=== PATIENT | female | born 1995 | race American Indian/Alaskan Native ===

== ENCOUNTER 2018-12-15 08:11 | Emergency (ER) | payer OTHER ==
[2018-12-15 08:17] VITALS: BP 121/80
--- NOTE | 2018-12-15 09:17 | Emergency Department Report ---
ED Headache HPI - General Chief Complaint: Headache Stated Complaint: HEAD PAIN/MIGRANE Time Seen by Provider: 12/15/18 09:08 - History of Present Illness Initial Comments: Patient is 23 years old female with no significant past medical history. Patient presented to the ER complaining of headache for the last 3 days. Patient stated that her symptoms started with a runny nose, cough, congestion and bilateral ear pain. Patient denied any fever or chills. No neck pain or rigidity. Patient also denied any nausea or vomiting. Patient found to be tachycardic at a rate of 123 with of the vital signs are stable. Allergies/Adverse Reactions: Allergies No Known Allergies Allergy (Verified 12/15/18 08:15) Home Medications: Ambulatory Orders Docusate Sodium [Colace CAP] 100 mg PO BID PRN #60 capsule 01/21/15 Ibuprofen [Motrin 800 MG tab] 800 mg PO Q8HR PRN #30 tablet 01/21/15 oxyCODONE /ACETAMINOPHEN [Percocet 5/325 mg] 1 - 2 tab PO Q6HR PRN #30 tablet 01/21/15 Pnv,Calcium 72/Iron/Folic Acid [Pnv Plus Multivit Tab] 1 tab PO DAILY 01/22/15 Ciprofloxacin HCl [Ciprofloxacin TAB] 500 mg PO Q12HR #14 tab 12/26/15 Ibuprofen [Motrin 800 MG tab] 800 mg PO Q8HR PRN #30 tablet 12/26/15 ED Review of Systems ROS: Stated complaint: HEAD PAIN/MIGRANE Other details as noted in HPI Comment: All other systems reviewed and negative Constitutional: denies: chills, fever Respiratory: denies: cough, orthopnea, shortness of breath, SOB with exertion, SOB at rest Gastrointestinal: denies: abdominal pain, nausea, vomiting Musculoskeletal: denies: back pain ED Past Medical Hx - Past Medical History Hx Hypertension: No Hx Congestive Heart Failure: No Hx Diabetes: No Hx Deep Vein Thrombosis: No Hx Renal Disease: No Hx Sickle Cell Disease: No Hx Seizures: No Hx Asthma: No Hx COPD: No Hx HIV: No - Surgical History Additional Surgical History: - Social History Smoking Status: Never Smoker Substance Use Type: None - Medications Home Medications: Home Medications Medication Instructions Recorded Confirmed Last Taken Type Docusate Sodium [Colace CAP] 100 mg PO BID PRN #60 capsule 01/21/15 Unknown Rx Ibuprofen [Motrin 800 MG tab] 800 mg PO Q8HR PRN #30 tablet 01/21/15 Unknown Rx oxyCODONE /ACETAMINOPHEN [Percocet 1 - 2 tab PO Q6HR PRN #30 tablet 01/21/15 Unknown Rx 5/325 mg] Pnv,Calcium 72/Iron/Folic Acid 1 tab PO DAILY 01/22/15 01/22/15 01/05/15 History [Pnv Plus Multivit Tab] Ciprofloxacin HCl [Ciprofloxacin 500 mg PO Q12HR #14 tab 12/26/15 Unknown Rx TAB] Ibuprofen [Motrin 800 MG tab] 800 mg PO Q8HR PRN #30 tablet 12/26/15 Unknown Rx ED Physical Exam - General Limitations: No Limitations General appearance: alert, in no apparent distress - Head Head exam: Present: atraumatic, normocephalic, normal inspection - Eye Eye exam: Present: normal appearance - ENT ENT exam: Present: normal exam, normal orophraynx, mucous membranes moist - Neck Neck exam: Present: normal inspection, full ROM. Absent: tenderness, meningismus, lymphadenopathy, thyromegaly - Respiratory Respiratory exam: Present: normal lung sounds bilaterally - Cardiovascular Cardiovascular Exam: Present: bradycardia - GI/Abdominal GI/Abdominal exam: Present: soft, normal bowel sounds. Absent: distended, tenderness, guarding, rebound, rigid - Extremities Exam Extremities exam: Present: normal inspection, full ROM, normal capillary refill. Absent: pedal edema, calf tenderness - Back Exam Back exam: Present: normal inspection, full ROM. Absent: tenderness, CVA te nderness (R), CVA tenderness (L), muscle spasm, paraspinal tenderness, vertebral tenderness - Neurological Exam Neurological exam: Present: alert, oriented X3, CN II-XII intact, normal gait - Skin Skin exam: Present: warm, intact, normal color ED Course Vital Signs 12/15/18 08:16 Temperature 98.5 F Pulse Rate 123 H Respiratory 18 Rate Blood Pressure 121/80 [Left] O2 Sat by Pulse 98 Oximetry ED Medical Decision Making - Lab Data Result diagrams: 12/15/18 09:19 12/15/18 09:19 - Radiology Data Radiology results: report reviewed CT brain is negative for acute finding except for possible sinusitis. - Medical Decision Making Patient is 23 years old female with no significant past medical history. Patient presented to the ER complaining of headache for the last 3 days. Patient stated that her symptoms started with a runny nose, cough, congestion and bilateral ear pain. Patient denied any fever or chills. No neck pain or rigidity. Patient also denied any nausea or vomiting. Patient found to be tachycardic at a rate of 123 with of the vital signs are stable. Labs reviewed and is unremarkable except for evidence of hyperthyroidism which is a new diagnosis for this patient. CT brain is negative for acute finding except for sinusitis. I will start patient on PTU and propanolol and given a prescription for Augmentin for sinusitis and Flonase. Patient given [facility] for follow-up and advised to return to the ER if symptoms are not improved. Critical care attestation.: If time is entered above; I have spent that time in minutes in the direct care of this critically ill patient, excluding procedure time. ED Disposition Clinical Impression: Headache, Hyperthyroidism, Sinusitis Disposition: DC-01 TO HOME OR SELFCARE Is pt being admited?: No Condition: Stable Instructions: Hyperthyroidism (ED), Sinusitis (ED), Acute Headache (ED) Referrals: [facility] [Provider Group] - 3-5 Days
[2018-12-15 09:31] LABS: Basophils % (Auto) 0.6 % (0.0-1.8); Eosinophils # (Auto) 0.1 K/mm3 (0.0-0.4); Eosinophils % (Auto) 1.5 % (0.0-4.3); Hematocrit 37.4 % (30.3-42.9); Hemoglobin 12.6 gm/dl (10.1-14.3); Lymphocytes # (Auto) 1.8 K/mm3 (1.2-5.4); Lymphocytes % (Auto) 27.3 % (13.4-35.0); Mean Corpuscular HGB Conc 34 % (30-34); Mean Corpuscular Volume 78 fl (79-97); Monocytes # (Auto) 0.6 K/mm3 (0.0-0.8); Monocytes % (Auto) 8.7 % (0.0-7.3); Platelet Count 244 K/mm3 (140-440); Red Blood Count 4.82 M/mm3 (3.65-5.03)
[2018-12-15 09:48] LABS: Alanine Aminotransferase 37 units/L (7-56); Albumin 3.3 g/dL (3.9-5); BUN/Creatinine Ratio 35; Blood Urea Nitrogen 14 mg/dL (7-17); Calcium 9.7 mg/dL (8.4-10.2); Hemolysis Index 79
[2018-12-15 10:00] LABS: Bilirubin,Direct < 0.2 mg/dL (0-0.2)
[2018-12-15 10:36] LABS: Free T4 (Free Thyroxine) 7.77 ng/dL (0.76-1.46)
--- NOTE | 2018-12-15 11:30 | Cat Scan Report ---
PROCEDURE: CT HEAD/BRAIN WO CON TECHNIQUE: CT of the head was performed without intravenous contrast. HISTORY: headache COMPARISONS: None FINDINGS: The ventricles are normal in position and shape. The ventricles are nondilated. No intracranial hemorrhage, mass, mass effect or evidence of acute ischemic infarct. The basilar cisterns are patent. Mild left frontal sinus mucosal thickening is likely congestive or inflammatory. The mastoid air cell s are clear. The orbits are intact. The calvarium is intact. No extracranial soft tissue swelling. IMPRESSION: 1. No acute intracranial abnormality. 2. Left frontal sinus mucosal thickening is likely congestive or inflammatory. This document is electronically signed by Yuko Reyes., December 15 2018 11:28:14 AM ET
[2018-12-15] MEDS ORDERED: TORADOL IM ONE (11:52)
== END 2018-12-15 12:39 | disposition home or self-care (01) ==
LOC: ED 08:11
DX: J01.90 Acute sinusitis, unspecified (principal); E05.90 Thyrotoxicosis, unspecified without thyrotoxic crisis or storm; H92.01 Otalgia, right ear; H92.02 Otalgia, left ear; Z79.899 Other long term (current) drug therapy; Z79.1 Long term (current) use of non-steroidal anti-inflammatories (NSAID)
CPT/HCPCS: 36415; 70450; 80048; 80076; 84439; 84443; 84703; 85025; 93005; 93010; 96372; 99284; J1885

== ENCOUNTER 2019-07-13 12:33 | Emergency (ER) | payer SELFPAY ==
--- NOTE | 2019-07-13 13:00 | Event Note ---
ED Screening Note ED Screening Note: states she has a headache that began two days ago states she took motrin, which helped +diarrhea, 3-4 episodes no n/v no fever PMHx hyperthyroidism had a normal CT head recently states she has not follow up with her PCP This initial assessment/diagnostic orders/clinical plan/treatment(s) is/are subject to change based on patients health status, clinical progression and re- assessment by fellow clinical providers in the ED. Further treatment and workup at subsequent clinical providers discretion. Patient/guardian urged not to elope from the ED as their condition may be serious if not clinically assessed and managed. Initial orders include: labs
[2019-07-13 13:02] VITALS: BP 130/83
[2019-07-13 15:16] LABS: Basophils % (Auto) 0.2 % (0.0-1.8); Eosinophils # (Auto) 0.1 K/mm3 (0.0-0.4); Eosinophils % (Auto) 1.5 % (0.0-4.3); Hematocrit 37.2 % (30.3-42.9); Hemoglobin 12.5 gm/dl (10.1-14.3); Lymphocytes # (Auto) 1.6 K/mm3 (1.2-5.4); Lymphocytes % (Auto) 19.6 % (13.4-35.0); Mean Corpuscular HGB Conc 34 % (30-34); Mean Corpuscular Volume 75 fl (79-97); Monocytes # (Auto) 0.6 K/mm3 (0.0-0.8); Monocytes % (Auto) 7.2 % (0.0-7.3); Platelet Count 235 K/mm3 (140-440); Red Blood Count 4.94 M/mm3 (3.65-5.03)
[2019-07-13] MEDS ORDERED: diphenhydrAMINE 50 MG/ML VIAL IV ONE (15:29)
[2019-07-13] MEDS ORDERED: METOCLOPRAMIDE 10 MG/2 ML INJ IV ONE (15:29)
[2019-07-13] MEDS ORDERED: SODIUM CHLORIDE 0.9% 1000 ML 1,000 ML IV ONE (15:29)
[2019-07-13 15:44] LABS: Alanine Aminotransferase 28 units/L (7-56); Albumin 3.6 g/dL (3.9-5); BUN/Creatinine Ratio 27; Blood Urea Nitrogen 8 mg/dL (7-17); Calcium 9.7 mg/dL (8.4-10.2); Hemolysis Index 18
--- NOTE | 2019-07-13 17:44 | Emergency Department Report ---
ED Headache HPI - General Chief Complaint: Headache Stated Complaint: ABD PAIN/HEADACHE Time Seen by Provider: 07/13/19 12:59 - History of Present Illness Initial Comments: This is a 24-year-old female nontoxic, well nourished in appearance, no acute signs of distress presents to the ED with c/o of acute on chronic headache. Fox schwartz describes headache as diffuse with level of 3 out of 10. Patient stated has n/v from the pain. Deneis any abdominal pain. Patient denies thunderclap headache. Patient denies any radiation of pain. Patient denies any head trauma. Patient denies any visual changes. Patient denies worse headache. Patient stated that darkness makes headache better and bright lights make the headache worse. She hasn't had a normal CT scan that was done on 12/25/2018. Patient describes headache as similar to migraine headaches. Patient denies any numbness, tingling, fever, chills, chest pain, shortness of breath, stiff neck. Patient denies facial drooping or one sided weakness. Patient denies any radiation of pain. Patient denies any allergies. Past medical history includes migraine headaches. Patient also stated has hyperthyroidism which she takes medication. Timing/Duration: episodic Quality: mild, achy Head Injury Location: frontal Recent Head Trauma: occasional headaches Associated Symptoms: nausea/vomiting. denies: confusion, fatigue, facial pain, fever/chills, flushing, loss of consciousness, nasal congestion, nasal drainage, numbness in legs/feet, rash, seizures, sinus infection, stiff neck, vision changes, weakness Allergies/Adverse Reactions: Allergies No Known Allergies Allergy (Verified 12/15/18 08:15) Home Medications: Ambulatory Orders Docusate Sodium [Colace CAP] 100 mg PO BID PRN #60 capsule 01/21/15 Ibuprofen [Motrin 800 MG tab] 800 mg PO Q8HR PRN #30 tablet 01/21/15 oxyCODONE /ACETAMINOPHEN [Percocet 5/325 mg] 1 - 2 tab PO Q6HR PRN #30 tablet 01/21/15 Pnv,Calcium 72/Iron/Folic Acid [Pnv Plus Multivit Tab] 1 tab PO DAILY 01/22/15 Ciprofloxacin HCl [Ciprofloxacin TAB] 500 mg PO Q12HR #14 tab 12/26/15 Ibuprofen [Motrin 800 MG tab] 800 mg PO Q8HR PRN #30 tablet 12/26/15 Amoxicillin/Potassium Clav [Augmentin 875-125 Tablet] 1 each PO BID #20 tablet 12/15/18 Fluticasone [Flonase] 1 spray NS QDAY #1 bottle 12/15/18 Propranolol [Inderal] 10 mg PO ONCE #30 tablet 12/15/18 propylthiouraciL [Propylthiouracil] 50 mg PO TID #90 tab 12/15/18 Butalb/Acetaminophen/Caffeine [Fioricet 50-300-40 mg CAP] 1 cap PO Q6HR PRN #12 cap 07/13/19 ED Review of Systems ROS: Stated complaint: ABD PAIN/HEADACHE Other details as noted in HPI Constitutional: denies: chills, fever Eyes: denies: eye pain, eye discharge, vision change ENT: denies: ear pain, throat pain Respiratory: denies: cough, shortness of breath, wheezing Cardiovascular: denies: chest pain, palpitations Endocrine: no symptoms reported Gastrointestinal: nausea, vomiting. denies: abdominal pain, diarrhea Genitourinary: denies: urgency, dysuria, discharge Musculoskeletal: denies: back pain, joint swelling, arthralgia Skin: denies: rash, lesions Neurological: headache. denies: weakness, paresthesias Psychiatric: denies: anxiety, depression Hematological/Lymphatic: denies: easy bleeding, easy bruising ED Past Medical Hx - Past Medical History Previous Medical History?: No Hx Hypertension: No Hx Congestive Heart Failure: No Hx Diabetes: No Hx Deep Vein Thrombosis: No Hx Renal Disease: No Hx Sickle Cell Disease: No Hx Seizures: No Hx Asthma: No Hx COPD: No Hx HIV: No - Surgical History Past Surgical History?: Yes Additional Surgical History: - Social History Smoking Status: Never Smoker Substance Use Type: None - Medications Home Medications: Home Medications Medication Instructions Recorded Confirmed Last Taken Type Docusate Sodium [Colace CAP] 100 mg PO BID PRN #60 capsule 01/21/15 Unknown Rx Ibuprofen [Motrin 800 MG tab] 800 mg PO Q8HR PRN #30 tablet 01/21/15 Unknown Rx oxyCODONE /ACETAMINOPHEN [Percocet 1 - 2 tab PO Q6HR PRN #30 tablet 01/21/15 Unknown Rx 5/325 mg] Pnv,Calcium 72/Iron/Folic Acid 1 tab PO DAILY 01/22/15 01/22/15 01/05/15 History [Pnv Plus Multivit Tab] Ciprofloxacin HCl [Ciprofloxacin 500 mg PO Q12HR #14 tab 12/26/15 Unknown Rx TAB] Ibuprofen [Motrin 800 MG tab] 800 mg PO Q8HR PRN #30 tablet 12/26/15 Unknown Rx Amoxicillin/Potassium Clav 1 each PO BID #20 tablet 12/15/18 Unknown Rx [Augmentin 875-125 Tablet] Fluticasone [Flonase] 1 spray NS QDAY #1 bottle 12/15/18 Unknown Rx Propranolol [Inderal] 10 mg PO ONCE #30 tablet 12/15/18 Unknown Rx propylthiouraciL [Propylthiouracil] 50 mg PO TID #90 tab 12/15/18 Unknown Rx Butalb/Acetaminophen/Caffeine 1 cap PO Q6HR PRN #12 cap 07/13/19 Unknown Rx [Fioricet 50-300-40 mg CAP] ED Physical Exam - General Limitations: No Limitations General appearance: alert, in no apparent distress - Head Head exam: Present: atraumatic, normocephalic - Eye Eye exam: Present: normal appearance, PERRL, EOMI - Neck Neck exam: Present: normal inspection, full ROM. Absent: tenderness, meningismus, lymphadenopathy - Respiratory Respiratory exam: Present: normal lung sounds bilaterally. Absent: respiratory distress, wheezes, rales, rhonchi, stridor, chest wall tenderness, accessory muscle use, decreased breath sounds, prolonged expiratory - Cardiovascular Cardiovascular Exam: Present: regular rate, normal rhythm, normal heart sounds. Absent: irregular rhythm, systolic murmur, diastolic murmur, rubs, gallop - GI/Abdominal GI/Abdominal exam: Present: soft, normal bowel sounds. Absent: distended, tenderness, guarding, rebound, rigid, diminished bowel sounds - Extremities Exam Extremities exam: Present: normal inspection, full ROM - Back Exam Back exam: Present: normal inspection, full ROM. Absent: tenderness, CVA tenderness (R), CVA tenderness (L), muscle spasm, paraspinal tenderness, vertebral tenderness, rash noted - Neurological Exam Neurological exam: Present: alert, oriented X3, normal gait - Psychiatric Psychiatric exam: Present: normal affect, normal mood - Skin Skin exam: Present: warm, dry, intact, normal color. Absent: rash ED Course Vital Signs 07/13/19 12:59 Temperature 98.5 F Pulse Rate 110 H Respiratory 18 Rate Blood Pressure 130/83 O2 Sat by Pulse 98 Oximetry - Reevaluation(s) Reevaluation #1: 07/13/19 17:44 Patient is speaking in full sentences with no signs of distress noted. ED Medical Decision Making - Lab Data Result diagrams: 07/13/19 14:53 07/13/19 14:53 - Medical Decision Making This is a 24-year-old female that presents with headache. Patient is stable and was examined by me. Patient is neurologically stable. There is no stiff neck or neck pain. Vital signs are stable. Patient is afebrile. Patient received Benadryl, Reglan, and 1 L of normal saline which the patient stated that he adache has subsided and resolved. Patient was instructed not to operate any machinery after discharged due to drowsiness of Benadryl. Patient stated that a family member will drive patient home. Patient is discharged with Fioricet. Patient was referred to Follow-up with a primary care/neurologist doctor in 3-5 days or if symptoms worsen and continue return to emergency room as soon as possible. At time of discharge, the patient does not seem toxic or ill in appearance. No acute signs of distress noted. Patient agrees to discharge treatment plan of care. No further questions noted by the patient. Critical care attestation.: If time is entered above; I have spent that time in minutes in the direct care of this critically ill patient, excluding procedure time. ED Disposition Clinical Impression: Hyperthyroidism Headache Qualifiers: Headache type: unspecified Headache chronicity pattern: acute headache Intractability: not intractable Qualified Code(s): R51 - Headache Disposition: DC-01 TO HOME OR SELFCARE Is pt being admited?: No Does the pt Need Aspirin: No Condition: Stable Instructions: Hyperthyroidism (ED), Acute Headache (ED), Butalbital/Aspirin/Caffeine (By mouth) Additional Instructions: Follow-up with a primary care and neurologist doctor in 3-5 days or if symptoms worsen and continue return to emergency room as soon as possible. Prescriptions: Butalb/Acetaminophen/Caffeine [Fioricet 50-300-40 mg CAP] 1 cap PO Q6HR PRN #12 cap PRN Reason: Headache Referrals: PRIMARY CARE, [Primary Care Provider] - 3-5 Days CARBUCCIA,NANDA, MD [Staff Physician] - 3-5 Days CILFFORD MILLS MD [Staff Physician] - 3-5 Days [facility] [Outside] - 3-5 Days Forms: Work/School Release Form(ED)
== END 2019-07-13 18:09 | disposition home or self-care (01) ==
LOC: ED 12:33
DX: R51 Headache (principal); E05.90 Thyrotoxicosis, unspecified without thyrotoxic crisis or storm; Z79.899 Other long term (current) drug therapy; R11.2 Nausea with vomiting, unspecified
CPT/HCPCS: 36415; 80053; 84436; 84443; 84703; 85025; 96361; 96374; 96375; 99283; J1200; J2765; J7030

== ENCOUNTER 2021-03-27 21:27 | Emergency (ER) | payer MEDICAID ==
[2021-03-27 23:57] VITALS: BP 141/83
[2021-03-28] MEDS ORDERED: ACETAMINOPHEN 500 MG TAB PO ONE (00:13)
--- NOTE | 2021-03-28 00:26 | Emergency Department Report ---
ED Abdominal Pain HPI - General Chief Complaint: Abdominal Pain Stated Complaint: ABD CRAMPS Source: patient Mode of arrival: Ambulatory Limitations: No Limitations - History of Present Illness Initial Comments: Patient is a A0 5-year-old -N[place]ian female with no past medical history and who is approximately 6 weeks gestation presents to the ED with complaint of acute onset persistent pelvic pain for the last 2 days. Patient states that the pain has been persistent and worse with movement or any physical activity. Patient denies vaginal bleeding, dysuria, urinary frequency and urgency, vaginal discharge, low back pain, shortness of breath, chest pain, nausea and vomiting and diarrhea, traumatic injury or fall and heavy lifting. MD Complaint: abdominal pain (suprapubic pain), other (6 weeks gestation) -: Sudden, days(s) (2) Location: suprapubic Radiation: none Migration to: no migration Severity: moderate Severity scale (0 -10): 5 Quality: cramping Consistency: constant Improves With: nothing Worsens With: nothing Context: other (Approximately 6 weeks gestation) Associated Symptoms: denies other symptoms, nausea. denies: vomiting, diarrhea, fever, chills, constipation, dysuria, hematemesis, hematochezia, melena, hematuria, anorexia, syncope - Related Data Home Medications Medication Instructions Recorded Confirmed Last Taken Pnv,Calcium 72/Iron/Folic Acid 1 tab PO DAILY 01/22/15 01/22/15 01/05/15 [Pnv Plus Multivit Tab] Previous Rx's Medication Instructions Recorded Last Taken Type Docusate Sodium [Colace CAP] 100 mg PO BID PRN #60 capsule 01/21/15 Unknown Rx Ibuprofen [Motrin 800 MG tab] 800 mg PO Q8HR PRN #30 tablet 01/21/15 Unknown Rx oxyCODONE /ACETAMINOPHEN [Percocet 1 - 2 tab PO Q6HR PRN #30 tablet 01/21/15 Unknown Rx 5/325 mg] Ciprofloxacin HCl [Ciprofloxacin 500 mg PO Q12HR #14 tab 12/26/15 Unknown Rx TAB] Ibuprofen [Motrin 800 MG tab] 800 mg PO Q8HR PRN #30 tablet 12/26/15 Unknown Rx Amoxicillin/Potassium Clav 1 each PO BID #20 tablet 12/15/18 Unknown Rx [Augmentin 875-125 Tablet] Fluticasone [Flonase] 1 spray NS QDAY #1 bottle 12/15/18 Unknown Rx propranoloL [Inderal] 10 mg PO ONCE #30 tablet 12/15/18 Unknown Rx propylthiouraciL [Propylthiouracil] 50 mg PO TID #90 tab 12/15/18 Unknown Rx Butalb/Acetaminophen/Caffeine 1 cap PO Q6HR PRN #12 cap 07/13/19 Unknown Rx [Fioricet 50-300-40 mg CAP] Acetaminophen [Tylenol] 500 mg PO Q6HR PRN #30 tablet 03/28/21 Unknown Rx Allergies Allergy/AdvReac Type Severity Reaction Status Date / Time No Known Allergies Allergy Verified 12/15/18 08:15 ED Review of Systems ROS: Stated complaint: ABD CRAMPS Other details as noted in HPI Constitutional: denies: chills, fever Eyes: denies: eye pain, eye discharge, vision change ENT: denies: ear pain, throat pain Respiratory: denies: cough, shortness of breath, wheezing Cardiovascular: denies: chest pain, palpitations Endocrine: no symptoms reported Gastrointestinal: abdominal pain (Suprapubic pain), nausea. denies: vomiting, diarrhea Genitourinary: denies: urgency, dysuria, discharge Musculoskeletal: denies: back pain, joint swelling, arthralgia Skin: denies: rash, lesions Neurological: denies: headache, weakness, paresthesias Psychiatric: denies: anxiety, depression Hematological/Lymphatic: denies: easy bleeding, easy bruising ED Past Medical Hx - Past Medical History Hx Hypertension: No Hx Congestive Heart Failure: No Hx Diabetes: No Hx Deep Vein Thrombosis: No Hx Renal Disease: No Hx Sickle Cell Disease: No Hx Seizures: No Hx Asthma: No Hx COPD: No Hx HIV: No - Surgical History Additional Surgical History: - Social History Smoking Status: Never Smoker Substance Use Type: None - Medications Home Medications: Home Medications Medication Instructions Recorded Confirmed Last Taken Type Docusate Sodium [Colace CAP] 100 mg PO BID PRN #60 capsule 01/21/15 Unknown Rx Ibuprofen [Motrin 800 MG tab] 800 mg PO Q8HR PRN #30 tablet 01/21/15 Unknown Rx oxyCODONE /ACETAMINOPHEN [Percocet 1 - 2 tab PO Q6HR PRN #30 tablet 01/21/15 Unknown Rx 5/325 mg] Pnv,Calcium 72/Iron/Folic Acid 1 tab PO DAILY 01/22/15 01/22/15 01/05/15 History [Pnv Plus Multivit Tab] Ciprofloxacin HCl [Ciprofloxacin 500 mg PO Q12HR #14 tab 12/26/15 Unknown Rx TAB] Ibuprofen [Motrin 800 MG tab] 800 mg PO Q8HR PRN #30 tablet 12/26/15 Unknown Rx Amoxicillin/Potassium Clav 1 each PO BID #20 tablet 12/15/18 Unknown Rx [Augmentin 875-125 Tablet] Fluticasone [Flonase] 1 spray NS QDAY #1 bottle 12/15/18 Unknown Rx propranoloL [Inderal] 10 mg PO ONCE #30 tablet 12/15/18 Unknown Rx propylthiouraciL [Propylthiouracil] 50 mg PO TID #90 tab 12/15/18 Unknown Rx Butalb/Acetaminophen/Caffeine 1 cap PO Q6HR PRN #12 cap 07/13/19 Unknown Rx [Fioricet 50-300-40 mg CAP] Acetaminophen [Tylenol] 500 mg PO Q6HR PRN #30 tablet 03/28/21 Unknown Rx ED Physical Exam - General Limitations: No Limitations General appearance: alert, in no apparent distress - Head Head exam: Present: atraumatic, normocephalic, normal inspection - Eye Eye exam: Present: normal appearance, PERRL, EOMI Pupils: Present: normal accommodation - ENT ENT exam: Present: normal exam, normal orophraynx, mucous membranes moist, TM's normal bilaterally, normal external ear exam - Neck Neck exam: Present: normal inspection, full ROM - Respiratory Respiratory exam: Present: normal lung sounds bilaterally. Absent: respiratory distress, wheezes, rhonchi, chest wall tenderness, accessory muscle use, decreased breath sounds, prolonged expiratory - Cardiovascular Cardiovascular Exam: Present: regular rate, normal rhythm, normal heart sounds. Absent: systolic murmur, diastolic murmur, rubs, gallop - GI/Abdominal GI/Abdominal exam: Present: soft, tenderness (Palpable mild suprapubic tenderness), normal bowel sounds. Absent: guarding, rebound, hyperactive bowel sounds, hypoactive bowel sounds, mass - Bi-manual exam: Present: other (Pelvic exam deferred at this time) - Extremities Exam Extremities exam: Present: normal inspection, full ROM, normal capillary refill - Back Exam Back exam: Present: normal inspection, full ROM. Absent: tenderness, CVA tenderness (R), CVA tenderness (L), muscle spasm, paraspinal tenderness, vertebral tenderness - Neurological Exam Neurological exam: Present: alert, oriented X3, CN II-XII intact, normal gait, reflexes normal - Psychiatric Psychiatric exam: Present: normal affect, normal mood - Skin Skin exam: Present: warm, dry, intact, normal color. Absent: rash ED Course Vital Signs 03/27/21 03/27/21 23:50 23:51 Temperature 98.9 F 98.9 F Pulse Rate 110 H Respiratory 22 18 Rate Blood Pressure 141/83 141/83 O2 Sat by Pulse 100 Oximetry ED Medical Decision Making - Lab Data Result diagrams: 03/28/21 01:06 03/28/21 01:06 - Radiology Data Radiology results: report reviewed, [place] [address] Ultrasound Report Signed Patient: MANJIT SHI MR#: [id number] : 1995 Acct:[id number] Age/Sex: 25 / F ADM Date: 03/27/21 Loc: ED Attending Dr: Ordering Physician: SHAKIR HOLLAND Date of Service: 03/28/21 Procedure(s): US OB <= 14 weeks fetus Accession Number(s): [id number] cc: SHAKIR HOLLAND EARLY OBSTETRICAL ULTRASOUND INDICATION: Pelvic pain, COMPARISON: None pertinent available TECHNIQUE: Transabdominal FINDINGS: Intrauterine is noted with pole and yolk sac seen. Cardiac activity was detected with heart rate of 116 bpm. Estimated gestational age by crown- rump length is 6 weeks 0 days. There appears to an elongated 3.9 cm implantational bleed Both ovaries show simple cysts measuring up to 3.7 cm on the left. No free fluid is seen. IMPRESSION: Early intrauterine with adjacent implantational bleed. Recommend follow-up. Signer Name: Bobby Murray MD Signed: 03/28/2021 3:49 AM Workstation Name: [id number] Transcribed By: WOJCIECH Dictated By: Bobby Murray MD Electronically Authenticated By: Bobby Murray MD Signed Date/Time: 03/28/21348 DD/ 5 TD/TT: - Medical Decision Making This is a A0 5-year-old -[place] female with no past medical history and who is approximately 6 weeks gestation presents to the ED with complaint of acute onset persistent pelvic pain for the last 2 days. Patient states that the pain has been persistent and worse with movement or any physical activity. In the ED, patient is alert and oriented x3 and is not in any distress. Patient was treated for pain in the ED with Tylenol. Lab test results were reviewed and are all nonactionable, and the hCG quant was 15,195. Urinalysis is unremarkable. Transvaginal ultrasound showed intrauterine is noted with pole and yolk sac seen. Cardiac activity was detected with heart rate of 116 bpm. Estimated gestational age by crown-rump length is 6 weeks 0 days. There appears to an elongated 3.9 cm implantational bleed. On reevaluation, patient's pain is well controlled medications. Patient will discharge home and advised to take Tylenol as needed for pain and to follow-up with [facility] physician in 5 to 7 days for reevaluation. Patient was also advised to maintain a complete pelvic rest with no physical or strenuous activities, heavy lifting or sexual activities. Patient was advised to return to the ED immediately if symptoms get worse. - Differential Diagnosis UTI; ectopic ; ovarian cyst; round ligament pain Critical care attestation.: If time is entered above; I have spent that time in minutes in the direct care of this critically ill patient, excluding procedure time. ED Disposition Clinical Impression: Abdominal pain during in first trimester, at early stage Disposition: 01 HOME / SELF CARE / HOMELESS Is pt being admited?: No Does the pt Need Aspirin: No Condition: Stable Instructions: Abdominal Pain (ED), Abdominal Pain During , [id number], Tests and Screening During Additional Instructions: All lab test results were reviewed and are all nonactionable. The transvaginal ultrasound showed an early intrauterine of approximately 6 weeks and 0 days with a heart rate of 116 bpm and an implantation on bleed. Therefore maintain a complete pelvic rest with no physical or strenuous activities such as heavy lifting or sexual activity. Take Tylenol as needed for pain with food, and follow-up with your [facility] physician in 5 to 7 days for reevaluation. Return to the ED immediately if symptoms get worse. Prescriptions: Acetaminophen [Tylenol] 500 mg PO Q6HR PRN #30 tablet PRN Reason: Pain , Severe (7-10) Referrals: BERRY ELDRIDGE MD [Staff Physician] - 3-5 Days Time of Disposition: 04:48 Print Language: SLOVAK
[2021-03-28 00:58] LABS: Bilirubin,Urine NEG (Negative); Blood,Urine NEG (Negative); Color,Urine Yellow (Yellow); Mucus,Urine FEW /HPF; Protein,Urine <15 mg/dL mg/dL (Negative); WBC,Urine < 1.0 /HPF (0.0-6.0)
[2021-03-28 01:27] LABS: Basophils % (Auto) 0.2 % (0.0-1.8); Eosinophils # (Auto) 0.2 K/mm3 (0.0-0.4); Eosinophils % (Auto) 1.4 % (0.0-4.3); Hematocrit 35.3 % (30.3-42.9); Hemoglobin 11.8 gm/dl (10.1-14.3); Lymphocytes # (Auto) 3.9 K/mm3 (1.2-5.4); Lymphocytes % (Auto) 34.1 % (13.4-35.0); Mean Corpuscular HGB Conc 34 % (30-34); Mean Corpuscular Volume 75 fl (79-97); Monocytes # (Auto) 0.7 K/mm3 (0.0-0.8); Monocytes % (Auto) 6.2 % (0.0-7.3); Platelet Count 304 K/mm3 (140-440); Red Blood Count 4.69 M/mm3 (3.65-5.03); Red Cell Distribution Width 13.9 % (13.2-15.2)
[2021-03-28 01:43] LABS: Alanine Aminotransferase 17 units/L (7-56); Albumin 4.2 g/dL (3.9-5); Blood Urea Nitrogen 14 mg/dL (7-17); Calcium 9.4 mg/dL (8.4-10.2); Hemolysis Index 0
[2021-03-28 01:45] LABS: BUN/Creatinine Ratio 28
--- NOTE | 2021-03-28 03:54 | Ultrasound Report ---
EARLY OBSTETRICAL ULTRASOUND INDICATION: Pelvic pain, COMPARISON: None pertinent available TECHNIQUE: Transabdominal FINDINGS: Intrauterine is noted with pole and yolk sac seen. Cardiac activity was det ected with heart rate of 116 bpm. Estimated gestational age by crown-rump length is 6 weeks 0 d ays. There appears to an elongated 3.9 cm implantational bleed Both ovaries show simple cysts measuring up to 3.7 cm on the left. No free fluid is seen. IMPRESSION: Early intrauterine with adjacent implantational bleed. Recommend follow-up. Signer Name: Bobby Murray MD Signed: 03/28/2021 3:49 AM Workstation Name: [id number]
== END 2021-03-28 06:31 | disposition home or self-care (01) ==
LOC: ED 21:27
DX: O26.891 Other specified pregnancy related conditions, first trimester (principal); R10.9 Unspecified abdominal pain; Z3A.01 Less than 8 weeks gestation of pregnancy
CPT/HCPCS: 36415; 76801; 80053; 81001; 84702; 85025; 99284

== ENCOUNTER 2021-05-11 04:06 | Emergency (ER) | payer MEDICAID ==
[2021-05-11 04:17] VITALS: BP 144/89
[2021-05-11] MEDS ORDERED: diphenhydrAMINE 25 MG CAP PO ONE (04:51)
[2021-05-11] MEDS ORDERED: predniSONE 20 MG TAB PO ONE (04:51)
[2021-05-11] MEDS ORDERED: BUTALB/ACETAMINOPHEN/CAFFEINE TAB PO ONE (04:51)
--- NOTE | 2021-05-11 04:58 | Emergency Department Report ---
ED Headache HPI - General Chief Complaint: Headache Stated Complaint: HEADACHE/THROAT SWELLING Time Seen by Provider: 05/11/21 04:50 - History of Present Illness Initial Comments: Patient is a 26-year-old -[place] female who presents for follow-up of migraine headache. Patient has history of same same location and intensity and duration. Patient states usually relieved with Fioricet however she is out for the last 2 days. Patient has follow-up appointment with her doctor in 3 days. Patient denies fevers chills no nausea no vomiting there is no dizziness or lightheadedness. There is mild photophobia pain is rated at 4/10 and sharp. Patient remains alert oriented x3 drove self to ED tonight is amatory with steady gait in no acute distress. Denies other symptoms no other medical history. Allergies/Adverse Reactions: Allergies No Known Allergies Allergy (Verified 12/15/18 08:15) Home Medications: Ambulatory Orders Docusate Sodium [Colace CAP] 100 mg PO BID PRN #60 capsule 01/21/15 Ibuprofen [Motrin 800 MG tab] 800 mg PO Q8HR PRN #30 tablet 01/21/15 oxyCODONE /ACETAMINOPHEN [Percocet 5/325 mg] 1 - 2 tab PO Q6HR PRN #30 tablet 01/21/15 Pnv,Calcium 72/Iron/Folic Acid [Pnv Plus Multivit Tab] 1 tab PO DAILY 01/22/15 Ciprofloxacin HCl [Ciprofloxacin TAB] 500 mg PO Q12HR #14 tab 12/26/15 Ibuprofen [Motrin 800 MG tab] 800 mg PO Q8HR PRN #30 tablet 12/26/15 Amoxicillin/Potassium Clav [Augmentin 875-125 Tablet] 1 each PO BID #20 tablet 12/15/18 Fluticasone [Flonase] 1 spray NS QDAY #1 bottle 12/15/18 propranoloL [Inderal] 10 mg PO ONCE #30 tablet 12/15/18 propylthiouraciL [Propylthiouracil] 50 mg PO TID #90 tab 12/15/18 Butalb/Acetaminophen/Caffeine [Fioricet 50-300-40 mg CAP] 1 cap PO Q6HR PRN #12 cap 07/13/19 Acetaminophen [Tylenol] 500 mg PO Q6HR PRN #30 tablet 03/28/21 Butalb/Acetaminophen/Caffeine [Fioricet 50-300-40 mg CAP] 1 cap PO Q6HR PRN #12 cap 05/11/21 ED Review of Systems ROS: Stated complaint: HEADACHE/THROAT SWELLING Other details as noted in HPI Constitutional: denies: chills, fever Eyes: other (photophobia ). denies: eye pain, eye discharge, vision change ENT: denies: ear pain, throat pain Respiratory: no symptoms reported Cardiovascular: denies: chest pain, palpitations Endocrine: no symptoms reported Gastrointestinal: denies: abdominal pain, nausea, diarrhea Genitourinary: denies: urgency, dysuria, discharge Musculoskeletal: denies: back pain, joint swelling, arthralgia Skin: denies: rash, lesions Neurological: headache. denies: weakness, numbness, paresthesias, confusion, vertigo Psychiatric: denies: anxiety, depression Hematological/Lymphatic: denies: easy bleeding, easy bruising ED Past Medical Hx - Past Medical History Hx Hypertension: No Hx Congestive Heart Failure: No Hx Diabetes: No Hx Deep Vein Thrombosis: No Hx Renal Disease: No Hx Sickle Cell Disease: No Hx Seizures: No Hx Asthma: No Hx COPD: No Hx HIV: No Additional medical history: hx: hyperthyroidism - Surgical History Past Surgical History?: No Additional Surgical History: - Social History Smoking Status: Never Smoker Substance Use Type: None - Medications Home Medications: Home Medications Medication Instructions Recorded Confirmed Last Taken Type Docusate Sodium [Colace CAP] 100 mg PO BID PRN #60 capsule 01/21/15 Unknown Rx Ibuprofen [Motrin 800 MG tab] 800 mg PO Q8HR PRN #30 tablet 01/21/15 Unknown Rx oxyCODONE /ACETAMINOPHEN [Percocet 1 - 2 tab PO Q6HR PRN #30 tablet 01/21/15 Unknown Rx 5/325 mg] Pnv,Calcium 72/Iron/Folic Acid 1 tab PO DAILY 01/22/15 01/22/15 01/05/15 History [Pnv Plus Multivit Tab] Ciprofloxacin HCl [Ciprofloxacin 500 mg PO Q12HR #14 tab 12/26/15 Unknown Rx TAB] Ibuprofen [Motrin 800 MG tab] 800 mg PO Q8HR PRN #30 tablet 12/26/15 Unknown Rx Amoxicillin/Potassium Clav 1 each PO BID #20 tablet 12/15/18 Unknown Rx [Augmentin 875-125 Tablet] Fluticasone [Flonase] 1 spray NS QDAY #1 bottle 12/15/18 Unknown Rx propranoloL [Inderal] 10 mg PO ONCE #30 tablet 12/15/18 Unknown Rx propylthiouraciL [Propylthiouracil] 50 mg PO TID #90 tab 12/15/18 Unknown Rx Butalb/Acetaminophen/Caffeine 1 cap PO Q6HR PRN #12 cap 07/13/19 Unknown Rx [Fioricet 50-300-40 mg CAP] Acetaminophen [Tylenol] 500 mg PO Q6HR PRN #30 tablet 03/28/21 Unknown Rx Butalb/Acetaminophen/Caffeine 1 cap PO Q6HR PRN #12 cap 05/11/21 Unknown Rx [Fioricet 50-300-40 mg CAP] ED Physical Exam - General Limitations: No Limitations General appearance: alert, in no apparent distress - Head Head exam: Present: normocephalic, normal inspection - Eye Eye exam: Present: normal appearance, PERRL, EOMI. Absent: conjunctival injection, nystagmus Pupils: Present: normal accommodation - ENT ENT exam: Present: mucous membranes moist, TM's normal bilaterally, normal external ear exam - Neck Neck exam: Present: normal inspection, full ROM. Absent: tenderness, meningismus, lymphadenopathy, thyromegaly - Respiratory Respiratory exam: Present: normal lung sounds bilaterally. Absent: respiratory distress, wheezes - Cardiovascular Cardiovascular Exam: Present: regular rate, normal rhythm, normal heart sounds. Absent: systolic murmur, diastolic murmur, rubs, gallop - GI/Abdominal GI/Abdominal exam: Present: soft, normal bowel sounds. Absent: distended, tenderness - Rectal Rectal exam: Present: deferred - Extremities Exam Extremities exam: Present: normal inspection, full ROM, normal capillary refill. Absent: tenderness - Back Exam Back exam: Present: normal inspection, full ROM. Absent: CVA tenderness (R), CVA tenderness (L), vertebral tenderness - Neurological Exam Neurological exam: Present: alert, oriented X3, CN II-XII intact, normal gait - Expanded Neurological Exam Expanded Patient oriented to: Present: person, place, time Speech: Present: fluid speech Cranial nerves: EOM's Intact: Normal, Gag Reflex: Normal, Tongue Deviation: Normal, Nystagmus: Normal Cerebellar function: Romberg: Normal Motor strength exam: RUE: 5, LUE: 5, RLE: 5, LLE: 5 DTR: ankle (R): 1+, ankle (L): 1+ Best Eye Response (Sidney): (4) open spontaneously Best Motor Response (Sidney): (6) obeys commands Best Verbal Response (Joanie): (5) oriented Joanie Total: 15 - Psychiatric Psychiatric exam: Present: normal affect, normal mood - Skin Skin exam: Present: warm, dry, intact, normal color. Absent: rash ED Course Vital Signs 05/11/21 04:13 Temperature 99 F Pulse Rate 116 H Respiratory 18 Rate Blood Pressure 144/89 [Right] O2 Sat by Pulse 98 Oximetry ED Medical Decision Making - Medical Decision Making This is a typical migraine headache for this patient same location duration and intensity. Pain is improved with Fioricet given p.o. Plan refill Fioricet, follow-up with primary care doctor in 2 to 3 days. Return to emergency department should symptoms worsen. Is agreement and understanding with discharge plan. Patient will be DC'd home in stable condition at this time. Repeat vital signs are improved heart rate is normal sinus at this time Critical care attestation.: If time is entered above; I have spent that time in minutes in the direct care of this critically ill patient, excluding procedure time. ED Disposition Clinical Impression: Migraine Qualifiers: Migraine type: unspecified Status migrainosus presence: without status migrainosus Intractability: not intractable Qualified Code(s): G43.909 - Migraine, unspecified, not intractable, without status migrainosus Disposition: HOME / SELF CARE / HOMELESS Is pt being admited?: No Does the pt Need Aspirin: No Condition: Stable Instructions: Recurrent Migraine Headache, Acetaminophen; Butalbital; Caffeine tablets or capsules Additional Instructions: Follow-up with your doctor in 2 to 3 days. Return to emergency department should symptoms worsen. Prescriptions: Butalb/Acetaminophen/Caffeine [Fioricet 50-300-40 mg CAP] 1 cap PO Q6HR PRN #12 cap PRN Reason: Headache Referrals: RUSSEL LY MD [Referring] - 3-5 Days NANDA COSBY MD [Staff Physician] - 3-5 Days Forms: Work/School Release Form(ED)
== END 2021-05-11 05:31 | disposition home or self-care (01) ==
LOC: ED 04:06
DX: G43.909 Migraine, unspecified, not intractable, without status migrainosus (principal); E05.80 Other thyrotoxicosis without thyrotoxic crisis or storm
CPT/HCPCS: 99282; J7512

== ENCOUNTER 2021-05-31 19:24 | Emergency (ER) | payer MEDICAID ==
[2021-05-31 19:31] VITALS: BP 124/70
[2021-05-31] MEDS ORDERED: METOCLOPRAMIDE 10 MG TAB PO ONE (20:32)
[2021-05-31] MEDS ORDERED: predniSONE 20 MG TAB PO ONE (20:32)
[2021-05-31] MEDS ORDERED: diphenhydrAMINE 25 MG CAP PO ONE (20:32)
[2021-05-31] MEDS ORDERED: ACETAMINOPHEN 500 MG TAB PO ONE (20:32)
--- NOTE | 2021-05-31 20:33 | Emergency Department Report ---
ED General Adult HPI - General Chief complaint: Headache Stated complaint: migraine Time Seen by Provider: 05/31/21 20:27 Source: patient Mode of arrival: Ambulatory Limitations: No Limitations - History of Present Illness Initial comments: Patient 26-year-old female with history of migraine headaches. Headache is generally controlled with Fioricet p.o. as needed. Patient complains of 6/10 left frontal headache for the past 3 days. This is usual headache location and intensity in anterior rotation. However patient endorses sore throat today. Swollen tonsils. Patient denies fever however there is some dysphagia pain with swallowing. Scribed as burning. She does history Dors history of sinusitis and strep throat. Is been no dizziness lightheadedness no nausea vomiting. No photophobia. There is no other exacerbating or relieving factors. - Related Data Home Medications Medication Instructions Recorded Confirmed Last Taken Pnv,Calcium 72/Iron/Folic Acid 1 tab PO DAILY 01/22/15 01/22/15 01/05/15 [Pnv Plus Multivit Tab] Previous Rx's Medication Instructions Recorded Last Taken Type Docusate Sodium [Colace CAP] 100 mg PO BID PRN #60 capsule 01/21/15 Unknown Rx Ibuprofen [Motrin 800 MG tab] 800 mg PO Q8HR PRN #30 tablet 01/21/15 Unknown Rx oxyCODONE /ACETAMINOPHEN [Percocet 1 - 2 tab PO Q6HR PRN #30 tablet 01/21/15 Unknown Rx 5/325 mg] Ciprofloxacin HCl [Ciprofloxacin 500 mg PO Q12HR #14 tab 12/26/15 Unknown Rx TAB] Ibuprofen [Motrin 800 MG tab] 800 mg PO Q8HR PRN #30 tablet 12/26/15 Unknown Rx Amoxicillin/Potassium Clav 1 each PO BID #20 tablet 12/15/18 Unknown Rx [Augmentin 875-125 Tablet] Fluticasone [Flonase] 1 spray NS QDAY #1 bottle 12/15/18 Unknown Rx propranoloL [Inderal] 10 mg PO ONCE #30 tablet 12/15/18 Unknown Rx propylthiouraciL [Propylthiouracil] 50 mg PO TID #90 tab 12/15/18 Unknown Rx Butalb/Acetaminophen/Caffeine 1 cap PO Q6HR PRN #12 cap 07/13/19 Unknown Rx [Fioricet 50-300-40 mg CAP] Acetaminophen [Tylenol] 500 mg PO Q6HR PRN #30 tablet 03/28/21 Unknown Rx Butalb/Acetaminophen/Caffeine 1 cap PO Q6HR PRN #12 cap 05/11/21 Unknown Rx [Fioricet 50-300-40 mg CAP] Amoxicillin/Potassium Clav 1 each PO BID 7 Days #14 tablet 05/31/21 Unknown Rx [Augmentin 875-125 Tablet] diphenhydrAMINE [Benadryl CAP] 25 mg PO Q8HR PRN #30 capsule 05/31/21 Unknown Rx predniSONE [Deltasone] 40 mg PO QDAY 5 Days #10 tab 05/31/21 Unknown Rx Allergies Allergy/AdvReac Type Severity Reaction Status Date / Time No Known Allergies Allergy Verified 05/31/21 19:35 ED Review of Systems ROS: Stated complaint: migraine Other details as noted in HPI Constitutional: denies: chills, fever, malaise Eyes: denies: eye pain, eye discharge, vision change ENT: throat pain, congestion. denies: ear pain, dental pain, hearing loss, epistaxis Respiratory: denies: cough, shortness of breath, wheezing Cardiovascular: denies: chest pain, palpitations Endocrine: no symptoms reported Gastrointestinal: denies: abdominal pain, nausea, vomiting, diarrhea Genitourinary: denies: urgency, dysuria, discharge Musculoskeletal: denies: back pain, joint swelling, arthralgia Skin: denies: rash, lesions Neurological: headache. denies: weakness, numbness, paresthesias, confusion, vertigo Psychiatric: denies: anxiety, depression Hematological/Lymphatic: denies: easy bleeding, easy bruising ED Past Medical Hx - Past Medical History Hx Hypertension: No Hx Congestive Heart Failure: No Hx Diabetes: No Hx Deep Vein Thrombosis: No Hx Renal Disease: No Hx Sickle Cell Disease: No Hx Seizures: No Hx Asthma: No Hx COPD: No Hx HIV: No Additional medical history: hx: hyperthyroidism - Surgical History Additional Surgical History: - Social History Smoking Status: Never Smoker Substance Use Type: None - Medications Home Medications: Home Medications Medication Instructions Recorded Confirmed Last Taken Type Docusate Sodium [Colace CAP] 100 mg PO BID PRN #60 capsule 01/21/15 Unknown Rx Ibuprofen [Motrin 800 MG tab] 800 mg PO Q8HR PRN #30 tablet 01/21/15 Unknown Rx oxyCODONE /ACETAMINOPHEN [Percocet 1 - 2 tab PO Q6HR PRN #30 tablet 01/21/15 Unknown Rx 5/325 mg] Pnv,Calcium 72/Iron/Folic Acid 1 tab PO DAILY 01/22/15 01/22/15 01/05/15 History [Pnv Plus Multivit Tab] Ciprofloxacin HCl [Ciprofloxacin 500 mg PO Q12HR #14 tab 12/26/15 Unknown Rx TAB] Ibuprofen [Motrin 800 MG tab] 800 mg PO Q8HR PRN #30 tablet 12/26/15 Unknown Rx Amoxicillin/Potassium Clav 1 each PO BID #20 tablet 12/15/18 Unknown Rx [Augmentin 875-125 Tablet] Fluticasone [Flonase] 1 spray NS QDAY #1 bottle 12/15/18 Unknown Rx propranoloL [Inderal] 10 mg PO ONCE #30 tablet 12/15/18 Unknown Rx propylthiouraciL [Propylthiouracil] 50 mg PO TID #90 tab 12/15/18 Unknown Rx Butalb/Acetaminophen/Caffeine 1 cap PO Q6HR PRN #12 cap 07/13/19 Unknown Rx [Fioricet 50-300-40 mg CAP] Acetaminophen [Tylenol] 500 mg PO Q6HR PRN #30 tablet 03/28/21 Unknown Rx Butalb/Acetaminophen/Caffeine 1 cap PO Q6HR PRN #12 cap 05/11/21 Unknown Rx [Fioricet 50-300-40 mg CAP] Amoxicillin/Potassium Clav 1 each PO BID 7 Days #14 tablet 05/31/21 Unknown Rx [Augmentin 875-125 Tablet] diphenhydrAMINE [Benadryl CAP] 25 mg PO Q8HR PRN #30 capsule 05/31/21 Unknown Rx predniSONE [Deltasone] 40 mg PO QDAY 5 Days #10 tab 05/31/21 Unknown Rx ED Physical Exam - General Limitations: No Limitations General appearance: alert, in no apparent distress - Head Head exam: Present: atraumatic, normocephalic - Eye Eye exam: Present: PERRL, EOMI. Absent: conjunctival injection, nystagmus Pupils: Present: normal accommodation - ENT ENT exam: Present: mucous membranes moist, normal external ear exam, other (bilat maxillary sinus tenderness to palpation, nares boggy clear rhinorrhea ) - Expanded ENT Exam Expanded Ear exam: Present: normal external inspection TM/Canal exam: Erythema: Right TM, Left TM Mouth exam: Absent: trismus Teeth exam: Present: normal inspection Throat exam: Positive: tonsillar erythema, tonsillomegaly, other (no lesions no stridor, no posterior tonsillar abscess). Negative: tonsillar exudate, R peritonsillar mass, L peritonsillar mass - Neck Neck exam: Present: normal inspection, full ROM, lymphadenopathy. Absent: tenderness, thyromegaly - GI/Abdominal GI/Abdominal exam: Present: soft, normal bowel sounds. Absent: distended, tenderness - Rectal Rectal exam: Present: deferred - Extremities Exam Extremities exam: Present: normal inspection, full ROM. Absent: tenderness - Back Exam Back exam: Present: normal inspection, full ROM - Neurological Exam Neurological exam: Present: alert, oriented X3, CN II-XII intact, normal gait, reflexes normal. Absent: motor sensory deficit - Expanded Neurological Exam Expanded Patient oriented to: Present: person, place, time Speech: Present: fluid speech Cranial nerves: EOM's Intact: Normal, Gag Reflex: Normal Motor strength exam: RUE: 5, LUE: 5, RLE: 5, LLE: 5 Best Eye Response ([place]): (4) open spontaneously Best Motor Response ([place]): (6) obeys commands Best Verbal Response ([place]): (5) oriented [place] Total: 15 - Psychiatric Psychiatric exam: Present: normal affect - Skin Skin exam: Present: warm, dry, intact, normal color. Absent: rash ED Course Vital Signs 05/31/21 19:27 Temperature 98 F Pulse Rate 93 H Respiratory 17 Rate Blood Pressure 124/70 [Right] O2 Sat by Pulse 99 Oximetry ED Medical Decision Making - Medical Decision Making Patient endorses headache is temporarily relieved with Fioricet as prescribed by her primary care doctor. This is likely sinusitis. Plan treat with antibiotics. Hydrate follow-up with primary care in 2 to 3 days. Patient verbalized agreement and understanding with discharge plan. Patient DC'd home in stable condition at this time. Critical care attestation.: If time is entered above; I have spent that time in minutes in the direct care of this critically ill patient, excluding procedure time. ED Disposition Clinical Impression: Sinusitis Qualifiers: Sinusitis location: maxillary Chronicity: acute Recurrence: non-recurrent Qualified Code(s): J01.00 - Acute maxillary sinusitis, unspecified Migraine Qualifiers: Migraine type: unspecified Status migrainosus presence: without status migrainosus Intractability: not intractable Qualified Code(s): G43.909 - Migraine, unspecified, not intractable, without status migrainosus Disposition: HOME / SELF CARE / HOMELESS Is pt being admited?: No Does the pt Need Aspirin: No Condition: Stable Instructions: Sinus Headache, Migraine Headache, [id number] Additional Instructions: Continue to take medications as prescribed, follow-up with your primary care doctor in 2 to 3 days. Return to emergency department should symptoms worsen. Prescriptions: Amoxicillin/Potassium Clav [Augmentin 875-125 Tablet] 1 each PO BID 7 Days #14 tablet diphenhydrAMINE [Benadryl CAP] 25 mg PO Q8HR PRN #30 capsule PRN Reason: Headache predniSONE [Deltasone] 40 mg PO QDAY 5 Days #10 tab Referrals: RAY AHMADI MD [Staff Physician] - 3-5 Days Forms: Work/School Release Form(ED) Time of Disposition: 20:45
== END 2021-05-31 20:59 | disposition home or self-care (01) ==
LOC: ED 19:24
DX: J01.00 Acute maxillary sinusitis, unspecified (principal); G43.909 Migraine, unspecified, not intractable, without status migrainosus
CPT/HCPCS: 99282; J7512